=== PATIENT | female | born 1995 | race Caucasian/White ===

== ENCOUNTER 2023-11-30 22:18 | Emergency (ER) | payer MEDICAID ==
[~2023-11-30] VITALS: Ht 160 cm; Wt 95.2 kg
[2023-11-30 22:36] VITALS: BP 148/91; PULSE 61; RESP 20; TEMP 98.7; O2SAT 97
[2023-12-01] MEDS: KETOROLAC TROMETH 60MG/2ML VIAL IM ONE (01:53)
[2023-12-01] MEDS: CYCLOBENZAPRINE HCL 10 MG TAB PO ONE (01:53)
[2023-12-01] MEDS: DexAMETHasone SOD PHOS 10MG/1ML VIAL INJ IM ONE (01:54)
[2023-12-01] MEDS ORDERED: METH-1181 PO (01:59)
[2023-12-01] MEDS ORDERED: IBUP-1456 PO (01:59)
== END 2023-12-01 02:21 | disposition home or self-care (01) ==
LOC: ER 22:18
DX: S29.012A Strain of muscle and tendon of back wall of thorax, initial encounter (principal); Z79.899 Other long term (current) drug therapy; Z79.1 Long term (current) use of non-steroidal anti-inflammatories (NSAID); X58.XXXA Exposure to other specified factors, initial encounter; Y93.89 Activity, other specified; Y92.89 Other specified places as the place of occurrence of the external cause; Y99.8 Other external cause status
CPT/HCPCS: 96372; 99284; J1100; J1885